=== PATIENT | male | born 1970 | race African-American/Black ===

== ENCOUNTER 2023-12-01 13:48 | Emergency (ER) | payer MEDICAID ==
[~2023-12-01] VITALS: Ht 193 cm; Wt 105.0 kg
[2023-12-01 14:22] VITALS: TEMP 98.4; O2SAT 100
[2023-12-01 16:36] LABS: HEMATOCRIT. 39.8 % (42.0-52.0); HEMOGLOBIN. 13.1 g/dL (14.0-18.0); MEAN CORPUSCULAR HEMOGLOBIN 27.9 pg (28.0-32.0); MEAN CORPUSCULAR HGB CONC 32.9 g/dL (31.0-37.0); MEAN CORPUSCULAR VOLUME 84.8 fL (80.0-94.0); PLATELET 258 x1000/uL (130-400); RED BLOOD CELL COUNT 4.69 mill/uL (4.7-6.1); RED CELL DISTRIBUTION WIDTH 14.8 % (11.6-14.6); WHITE BLOOD COUNT 3.4 x1000/uL (4.5-11.0)
[2023-12-01 16:40] LABS: DIFFERENTIAL COMMENT 1
[2023-12-01] MEDS: KETOROLAC 30MG/ML VIAL IM ONE (17:03)
[2023-12-01 17:09] LABS: PLATELET ESTIMATE NORMAL
[2023-12-01] MEDS ORDERED: IBUP-2029 MT (17:30)
[2023-12-01 17:43] VITALS: BP 158/97; PULSE 54; RESP 14
== END 2023-12-01 17:51 | disposition home or self-care (01) ==
LOC: ER 14:18
DX: M25.532 Pain in left wrist (principal)
CPT/HCPCS: 85025; 36415; 73110; 73130; 96372; 99284; J1885; Z7610

== ENCOUNTER 2025-03-05 14:17 | Emergency (ER) | payer SELFPAY ==
[~2025-03-05] VITALS: Ht 195.6 cm; Wt 107.0 kg
[~2025-03-05 14:17] MED LIST: IBUP-2029 MT
[2025-03-05 14:25] VITALS: O2SAT 100
[2025-03-05] MEDS: KETOROLAC 15MG/ML VIAL IM ONE (16:06)
[2025-03-05] MEDS: LIDOCAINE 5% PATCH TOP SCH (16:07)
[2025-03-05] MEDS ORDERED: LIDO-53 TP (16:27)
[2025-03-05] MEDS ORDERED: CYCL5TAB3 MT (16:27)
[2025-03-05] MEDS ORDERED: NAPR-1176 MT (16:27)
[2025-03-05 16:40] VITALS: BP 164/98; PULSE 56; RESP 15; TEMP 37.2; O2SAT 100
== END 2025-03-05 16:46 | disposition home or self-care (01) ==
LOC: ER 14:17
DX: M54.40 Lumbago with sciatica, unspecified side (principal); Z98.890 Other specified postprocedural states; Z79.899 Other long term (current) drug therapy
CPT/HCPCS: 72100; 96372; 99283; J1885; Z7610